=== PATIENT | female | born 1990 | race African-American/Black ===

== ENCOUNTER 2019-12-22 22:11 | Emergency (ER) | payer SELFPAY ==
[~2019-12-22] VITALS: Ht 157.5 cm; Wt 72.6 kg
--- NOTE | 2019-12-22 22:31 | Emergency Department Note ---
History of Present Illnes History of Present Illness Chief Complaint: Laceration History of Present Illness This is a 29 year old female, with a history of PCOS, who presents for evaluati on of a laceration of the left hand. Patient states that she was attempting to open a bottle of essential oil, using a kitchen knife, when the knife slipped and caused a small laceration in the webbing of the soft tissue between the left thumb and index finger. This occurred approximately 8 hours prior to arrival, and there is currently no active bleeding. Patient presents for evaluation of the hand, due to pain and concern for possible infection. The knife was clean. Patient's last tetanus was proximate 3 years ago when she gave to her child. Patient clean the wound with hydrogen peroxide and onul-[id number] antibiotic ointment was applied. Patient has full use of the left hand. She denies any numbness, tingling, or weakness of the left hand. She has taken Tylenol for the pain, one time today. Historian: Patient Arrival Mode: Car Lathe Setup Operator Required: No Onset (how long ago): hour(s) (8) Location: left hand Quality: throbbing Radiation: Reports non-radiation Severity: moderate Onset quality: sudden Duration (how long): hour(s) (8) Timing of current episode: constant Progression: unchanged Chronicity: new Context: Reports trauma/injury; Denies recent illness, Denies recent surgery Relieving factors: none Exacerbating factors: none Associated symptoms: Reports denies other symptoms; Denies fever/chills Treatments prior to arrival: other (Acetaminophen) Past Medical/Family History Physician Review I have reviewed the patient's past medical and family history. Any updates have been documented here. Past Medical History Recent Fever: No Clinical Suspicion of Infectio: No New/Unexplained Change in Ment: No Other Medical History: PCOS Past Surgical History: None Social History Smoking Cessation: Never Smoker Alcohol Use: Occasional Any Illegal Drug Use: No TB Exposure/Symptoms: No Physically hurt or threatened: No Family History Family history of heart diseas: No Other Last Tetanus: 3 years ago; Any Pre-Existing Lines (PICC,: No Review of Systems Review of Systems Constitutional: Reports no symptoms EENTM: Reports no symptoms Cardiovascular: Reports no symptoms Respiratory: Reports no symptoms Gastrointestinal: Reports no symptoms Musculoskeletal: Reports muscle pain (pain at the site of laceration/puncture of the webbing of the left hand) Integumentary: Reports other (see HPI, re:laceration) Neurological: Reports no symptoms; Denies numbness, Denies paresthesia, Denies tingling, Denies weakness Review of other systems: All other systems negative Physical Exam Related Data Allergies: Coded Allergies: Penicillins (Verified Allergy, Unknown, 12/22/19) Triage Vital Signs Vital Signs Date Time Temp Pulse Resp B/P (MAP) Pulse Ox O2 Delivery O2 Flow Rate FiO2 12/22/19 22:25 98.5 98 18 121/85 100 Room Air Vital signs reviewed: Yes Physical Exam CONSTITUTIONAL Constitutional: Present well-developed, Present well-nourished HENT HENT: Present normocephalic, Present atraumatic, Present oropharynx clear/moist, Present nose normal HENT L/R: Present left ext ear normal, Present right ext ear normal EYES Eyes: Reports PERRL, Reports conjunctivae normal NECK Neck: Present ROM normal PULMONARY Pulmonary: Present effort normal, Present breath sounds normal CARDIOVASCULAR Cardiovascular: Present regular rhythm, Present heart sounds normal, Present capillary refill normal, Present normal rate GASTROINTESTINAL GENITOURINARY SKIN Skin: Present other (3mm x 2 mm oval shaped laceration/puncture of the left hand, in the webbing between the left thumb and index finger; no active bleeding, redness, or drainage. The injury appears superficial, though there is some soft tissue swelling beneath the injury. Patient has full range of motion of the left hand and is able to make a fist and to oppose each finger to the left thumb. There is no neurologic deficit and sensation is intact.) MUSCULOSKELETAL NEUROLOGICAL PSYCHOLOGICAL Assessment & Plan Medical Decision Making MDM - Clean the laceration on the left hand twice daily with antibacterial soap and water, pat dry, and then apply [id number] antibiotic ointment and then cover with a Band-Aid. You may use Neosporin, triple antibiotic ointment, or bacitracin. - Completing antibiotics, as directed. - Apply ice indirectly to the wound for 10-15 minutes, 3-4 times per day, for the next 24 hours, to help with swelling. Assessment & Plan Final Impression: (1) Laceration of hand, left (2) Hand pain, left Depart Disposition: HOME, SELF-CARE Last Vital Signs Date Time Temp Pulse Resp B/P (MAP) Pulse Ox O2 Delivery O2 Flow Rate FiO2 12/22/19 22:25 98.5 98 18 121/85 100 Room Air Home Meds Active Scripts Ibuprofen (IBUPROFEN) 400 Mg Tablet, 600 MG PO Q6H for pain, #30 TAB 0 Refills Prov:SOWMYA OGDEN MD 12/22/19 Sulfamethoxazole/Trimethoprim (BACTRIM DS TABLET) 1 Each Tablet, 1 TAB PO BID for infection for 10 Days, #20 TAB 0 Refills Prov:SOWMYA OGDEN MD 12/22/19 SOWMYA OGDEN MD Dec 22, 2019 22:31
[2019-12-22] MEDS ORDERED: AMOXICILLIN/CLAVULANATE K 875 MG TAB PO STA (22:42)
[2019-12-22] MEDS ORDERED: IBUPROFEN 600 MG TAB PO STA (22:42)
[2019-12-22] MEDS ORDERED: TRIMETHOPRIM/SULFAMETHOXAZOLE 160-800 MG TAB PO ONE (22:45)
[2019-12-22] MEDS ORDERED: BACTRIM DS TAB1 EACH PO (22:47)
[2019-12-22] MEDS ORDERED: IBUPROFEN400 MG PO (22:48)
[2019-12-22] MEDS ORDERED: AMOXICILLIN/CLAVULANATE K 875 MG TAB ONE (22:50)
[2019-12-22] MEDS ORDERED: IBUPROFEN 600 MG TAB ONE (22:50)
[2019-12-22] MEDS ORDERED: TRIMETHOPRIM/SULFAMETHOXAZOLE 160-800 MG TAB ONE (22:51)
== END 2019-12-22 23:25 | disposition home or self-care (01) ==
LOC: FSED 22:30
DX: S61.412A Laceration without foreign body of left hand, initial encounter (principal); M79.642 Pain in left hand; W26.0XXA Contact with knife, initial encounter; Y92.008 Other place in unspecified non-institutional (private) residence as the place of occurrence of the external cause
CPT/HCPCS: 99282